=== PATIENT | female | born 1995 | race Caucasian/White ===

== ENCOUNTER 2023-05-10 11:11 | Emergency (ER) | payer OTHER ==
[~2023-05-10] VITALS: Ht 154.9 cm; Wt 59.9 kg
[2023-05-10] MEDS ORDERED: KETOROLAC TROMETHAMINE 15 MG/ML VIAL ONE (13:59)
[2023-05-10] MEDS ORDERED: BENZONATATE 100 MG CAPSULE PO ONE (14:00)
[2023-05-10] MEDS: KETOROLAC TROMETHAMINE 15 MG/ML VIAL IM ONE (14:05)
[2023-05-10] MEDS: BENZONATATE 100 MG CAPSULE PO PRN (14:05)
[2023-05-10] MEDS ORDERED: BENZ-13 PO (14:40)
[2023-05-10] MEDS ORDERED: IBUP-1955 PO (14:40)
[2023-05-10 15:03] VITALS: BP 121/74; TEMP 97.7; O2SAT 99
== END 2023-05-10 15:03 | disposition home or self-care (01) ==
LOC: ER 11:34
DX: R05.9 Cough, unspecified (principal); U09.9 Post COVID-19 condition, unspecified; R07.89 Other chest pain
CPT/HCPCS: 99283; 71045; 96372; J1885